=== PATIENT | female | born 1945 | race Two or more races ===

== ENCOUNTER 2018-07-03 13:27 | Outpatient (CLI) | payer OTHER ==
[~2018-07-03 13:27] MED LIST: LEVOXYL88 MCG; PREDNISONE50 MG; TENORMIN50 MG
== END 2018-07-03 13:37 | disposition home or self-care (01) ==
LOC: RAD 501 13:27
DX: M54.5 Low back pain (principal); M54.16 Radiculopathy, lumbar region

== ENCOUNTER 2023-07-07 09:52 | Outpatient (CLI) | payer OTHER | END 2023-07-07 10:13 | disposition home or self-care (01) | LOC: RAD 09:52 | PROVIDERS: ATTEND Internal Medicine Rheumatology | DX: M15.8 Other polyosteoarthritis (principal); R68.84 Jaw pain ==

== ENCOUNTER 2023-11-09 08:28 | Outpatient (CLI) | payer OTHER | END 2023-11-09 08:57 | disposition home or self-care (01) | LOC: SONOGRAMA 08:28 | DX: R10.13 Epigastric pain (principal) ==

== ENCOUNTER 2024-01-05 10:27 | Outpatient (CLI) | payer OTHER | END 2024-01-05 10:43 | disposition home or self-care (01) | LOC: RAD 10:27 | PROVIDERS: ATTEND Orthopaedic Surgery Adult Reconstructive Orthopaedic Surgery | DX: M17.11 Unilateral primary osteoarthritis, right knee (principal); M17.12 Unilateral primary osteoarthritis, left knee; I11.9 Hypertensive heart disease without heart failure ==